=== PATIENT | female | born 1990 | race Caucasian/White ===

== ENCOUNTER 2016-10-30 13:36 | Emergency (ER) | payer MEDICAID, OTHER ==
[~2016-10-30] VITALS: Ht 160 cm; Wt 70.0 kg
[2016-10-30 13:44] VITALS: Ht 160 cm; Wt 70.0 kg
[2016-10-30 14:52] LABS: ADD SCAN DIFF NO
[2016-10-30 15:10] LABS: BASOPHIL # 0.1 10^3/ul (0.0-0.1); BASOPHILS % 0.9 % (0.0-2.0); EOSINOPHILS % 0.1 % (0.0-7.0); HEMATOCRIT 41.4 % (37.0-47.0); HEMOGLOBIN 13.9 g/dl (12.0-16.0); LYMPHOCYTES % 25.1 % (15.0-51.0); MEAN CORPUSCULAR HEMOGLOBIN 29.5 pg (29.0-33.0); MEAN CORPUSCULAR HGB CONC 33.6 g/dl (32.0-37.0); MEAN CORPUSCULAR VOLUME 87.9 fl (82.0-101.0); MEAN PLATELET VOLUME 10.4 fl (7.4-10.4); MONOCYTE # 0.5 10^3/ul (0.3-0.9); MONOCYTES % 5.9 % (0.0-11.0); NEUTROPHIL # 5.5 10^3/ul (1.6-7.5); NEUTROPHILS % 67.6 % (39.0-77.0); PLATELET COUNT 331 10^3/UL (140-415); RED BLOOD COUNT 4.71 10^6/ul (4.20-5.40); RED CELL DISTRIBUTION WIDTH 13.1 % (11.5-14.5); WHITE BLOOD COUNT 8.1 10^3/ul (4.8-10.8)
[2016-10-30 15:16] LABS: ADD UMIC YES; UR ASCORBIC ACID NEGATIVE (NEGATIVE); UR BILIRUBIN (Dip) NEGATIVE (NEGATIVE); UR BLOOD (Dip) 2+ mg/dL (NEGATIVE); UR CLARITY CLOUDY (CLEAR); UR COLOR RED (YELLOW); UR GLUCOSE (Dip) NEGATIVE (NEGATIVE); UR KETONES (Dip) TRACE mg/dL (NEGATIVE); UR LEUKOCYTE ESTERASE (Dip) TRACE Leu/ul (NEGATIVE); UR NITRITE (Dip) NEGATIVE (NEGATIVE); UR RBC > 182 /HPF (0-5); UR SPECIFIC GRAVITY (Dip) 1.013 (1.003-1.030); UR SQUAMOUS EPITHELIAL CELL FEW /HPF (FEW); UR TOTAL PROTEIN (Dip) 2+ mg/dl (NEGATIVE); UR UROBILINOGEN (Dip) NEGATIVE (NEGATIVE)
--- NOTE | 2016-10-30 15:35 | RADRPT ---
PROCEDURE: OBSTETRICAL ULTRASOUND WITH ENDOVAGINAL IMAGES CLINICAL INDICATION: Vaginal Bleed () TECHNIQUE: Multiple sonographic images of the pelvis were obtained utilizing a transabdominal and endovaginal technique. The images were reviewed on a PACS workstation. COMPARISON: None. LMP: 10/06/2016 FINDINGS: The uterus measures 7.3 x 3.2 x 4.3 cm. The endometrium measures 3 mm in thickness. There is no ev idence of an intrauterine . The right ovary measures 1.9 x 1.7 x 1.8 cm. The left ovary measures 2.8 x 1.7 x 2.1 cm. There is no rmal vascular flow in both ovaries. No significant ovarian lesions are seen. No significant pelvic free fluid is identified. IMPRESSION: No evidence of an intrauterine or significant endometrial thickening. Findings may be d ue to an early intrauterine although an ectopic cannot be entirely excluded. Sh ort-term follow-up ultrasound and serial Beta HCG measurements are recommended for further evaluatio n. Bilateral ovaries and adnexa are unremarkable. RPTAT: EE Physician Onofre Date Time Electronically viewed and signed by Physician Onofre on 10/30/2016 15:34 /
[2016-10-30] MEDS ORDERED: ACET500C5 PO (15:57)
--- NOTE | 2016-10-30 16:01 | ERD ---
ER Documentation Chief Complaint Date/Time DATE: 10/30/16 TIME: 15:58 Chief Complaint sent by pmd for vag bleed + preg test lmp 10/06/16 HPI This 26-year-old female presents for evaluation from primary doctor. She has had some vaginal bleeding over the last day with some lower abdominal cramping. She has incidental positive test at the clinic was referred for further evaluation. Patient's last menstrual period was approximately 1 month ago but it was short and less than her normal menstrual period. Patient is a G1 para 0. ROS All systems reviewed and are negative except as per history of present illness. Medications Home Meds Active Scripts Acetaminophen* (Tylophen*) 500 Mg Capsule, 1 CAP PO Q6H Y for PAIN AND OR ELEVATED TEMP, #15 CAP Prov:STACEY SALVADOR MD 10/30/16 Allergies Allergies: Coded Allergies: No Known Allergy (Unverified , 10/30/16) PMhx/Soc Hx Alcohol Use: No Hx Substance Use: No Hx Tobacco Use: No Physical Exam Vitals Vital Signs Date Time Temp Pulse Resp B/P Pulse Ox O2 Delivery O2 Flow Rate FiO2 10/30/16 13:44 98.7 76 18 113/70 100 Physical Exam Const: [] Alert, [id number] Head: Atraumatic Eyes: Normal Conjunctiva ENT: Normal External Ears, Nose and Mouth. Neck: Full range of motion..~ No meningismus. Resp: Clear to auscultation bilaterally Cardio: Regular rate and rhythm, no murmurs Abd: Soft, non tender, non distended. Normal bowel sounds Skin: No petechiae or rashes Back: No midline or flank tenderness Ext: No cyanosis, or edema Neur: Awake and alert Psych: Normal Mood and Affect Result Diagram: 10/30/16 1440 Results 24 hrs Laboratory Tests Test 10/30/16 14:40 White Blood Count 8.110^3/ul Red Blood Count 4.7110^6/ul Hemoglobin 13.9g/dl Hematocrit 41.4% Mean Corpuscular Volume 87.9fl Mean Corpuscular Hemoglobin 29.5pg Mean Corpuscular Hemoglobin Concent 33.6g/dl Red Cell Distribution Width 13.1% Platelet Count 96998^3/UL Mean Platelet Volume 10.4fl Neutrophils % 67.6% Lymphocytes % 25.1% Monocytes % 5.9% Eosinophils % 0.1% Basophils % 0.9% Nucleated Red Blood Cells % 0.0/100WBC Neutrophils # 5.510^3/ul Lymphocytes # 2.010^3/ul Monocytes # 0.510^3/ul Eosinophils # 0.010^3/ul Basophils # 0.110^3/ul Nucleated Red Blood Cells # 0.010^3/ul Urine Color RED Urine Clarity CLOUDY Urine pH 6.0 Urine Specific [place] 1.013 Urine Ketones TRACEmg/dL Urine Nitrite NEGATIVEmg/dL Urine Bilirubin NEGATIVEmg/dL Urine Urobilinogen NEGATIVEmg/dL Urine Leukocyte Esterase TRACELeu/ul Urine Microscopic RBC > 182/HPF Urine Microscopic WBC 165/HPF Urine Squamous Epithelial Cells FEW/HPF Urine Hemoglobin 2+mg/dL Urine Glucose NEGATIVEmg/dL Urine Total Protein 2+mg/dl Beta HCG, Quantitative 950.8mIU/ml Procedures/MDM Pelvic ultrasound shows no evidence of intrauterine . There is no evidence of ectopic masses or adnexal masses or acute abnormalities. Quantitative hCG is 950. Patient is Rh+. Patient was stable amatory throughout the ED course. Patient presents with vaginal bleeding of early without visible on ultrasound. Patient shows no signs or symptoms of acute abdomen, or hemorrhaging. Differential includes early normal , ectopic and incomplete . Patient will be discharged with Tylenol for pain and 2 day recheck to evaluate for increasing or decreasing hCGs. Patient shows return for fevers, worsening bleeding, pain, new worsening symptoms. The patient was stable with no new complaints during the ER course. Clinically, there is no current evidence to suggest meningitis, sepsis, acute abdomen, pneumonia, acute coronary syndrome, pulmonary embolism, or any other emergent condition appearing to require further evaluation or hospitalization. The patient should certainly return for any new or worsening symptoms per the aftercare instructions. They should otherwise follow-up with her primary care doctor for reevaluation this week. Departure Diagnosis: Primary Impression: Vaginal bleeding in patient at less than 20 weeks ges... Condition: Stable Patient Instructions: Bleeding During Early Additional Instructions: no puede julia un emarazo horita. es posiblemente aborto , emabrazo temprano, ectopico . cheque estudios otor vez en 2 galvez. o mas pronto para nueva symptomas. STACEY SALVADOR MD Oct 30, 2016 16:01
== END 2016-10-30 16:15 | disposition home or self-care (01) ==
LOC: FTE 13:36
DX: O20.9 Hemorrhage in early pregnancy, unspecified (principal); Z3A.00 Weeks of gestation of pregnancy not specified
CPT/HCPCS: 36415; 76801; 76817; 81001; 84702; 85025; 86900; 86901

== ENCOUNTER 2016-11-06 11:11 | Emergency (ER) | payer MEDICAID ==
[~2016-11-06] VITALS: Ht 160 cm; Wt 69.0 kg
[~2016-11-06 11:11] MED LIST: ACET500C5 PO
[2016-11-06 11:13] VITALS: Ht 160 cm; Wt 69.0 kg
--- NOTE | 2016-11-06 11:40 | ERD ---
ER Documentation Chief Complaint Date/Time DATE: 11/06/16 TIME: 11:36 Chief Complaint sent by pmd , vag bleed x 2 weeks HPI She is a 26-year-old female, , who presents to the emergency department for concerns of vaginal bleeding x 2 weeks. Patient was referred to the ED by a Mati Mascorro for concerns of incomplete versus ectopic . Patient states that her beta hCG is noted to be down trending. Of note patient was seen here on 10/30/16 and at that time her beta hCG was noted to be 950. Patient was Rh+. Patient states she has been using 2 pads per day. Patient reports bright red blood. Patient denies any pain. Patient denies any fevers or chills. Patient states her last menstrual period was on 10-06-16, however it was noted to be an irregular period. ROS All systems reviewed and are negative except as per history of present illness. Medications Home Meds Active Scripts Acetaminophen* (Tylophen*) 500 Mg Capsule, 1 CAP PO Q6H Y for PAIN AND OR ELEVATED TEMP, #15 CAP Prov:STACEY SALVADOR MD 10/30/16 Allergies Allergies: Coded Allergies: No Known Allergy (Unverified , 10/30/16) PMhx/Soc Hx Alcohol Use: No Hx Substance Use: No Hx Tobacco Use: No FmHx Family History: No diabetes Physical Exam Vitals Vital Signs Date Time Temp Pulse Resp B/P Pulse Ox O2 Delivery O2 Flow Rate FiO2 11/06/16 11:13 97.8 75 16 118/56 98 Physical Exam GENERAL: Well-developed, well-nourished female. Appears in no acute distress. HEAD: Normocephalic, atraumatic. EYES: Pupils are equally reactive bilaterally. EOMs grossly intact. No conjunctival erythema. ENT: Moist mucous membranes. No uvula deviation. No kissing tonsils. NECK: Supple. No meningismus. Normal range of motion of the neck. LUNG: Clear to auscultation bilaterally. No rhonchi, wheezing, rales or coarse breath sounds. HEART: Regular rate and rhythm. No murmurs, rubs or gallops. ABDOMEN: No scars, ecchymosis or rashes noted. Soft, nontender, and nondistended. Positive bowel sounds in all four quadrants. No rebound tenderness , no guarding. (-) McBurney's point tenderness. No CVA tenderness. BACK: No midline tenderness. EXTREMITIES: Equal pulses bilaterally. No peripheral clubbing, cyanosis or edema. No unilateral leg swelling. NEUROLOGIC: Alert and oriented. Moving all four extremities without any difficulty. Normal speech. Steady gait. SKIN: Normal color. Warm and dry. No rashes or lesions. Result Diagram: 11/06/16 1140 Results 24 hrs Laboratory Tests Test 11/06/16 11:40 11/06/16 11:45 White Blood Count 6.110^3/ul Red Blood Count 4.4910^6/ul Hemoglobin 13.6g/dl Hematocrit 40.2% Mean Corpuscular Volume 89.5fl Mean Corpuscular Hemoglobin 30.3pg Mean Corpuscular Hemoglobin Concent 33.8g/dl Red Cell Distribution Width 13.1% Platelet Count 31352^3/UL Mean Platelet Volume 10.6fl Neutrophils % 57.1% Lymphocytes % 31.8% Monocytes % 9.0% Eosinophils % 0.7% Basophils % 1.1% Nucleated Red Blood Cells % 0.0/100WBC Neutrophils # 3.510^3/ul Lymphocytes # 1.910^3/ul Monocytes # 0.610^3/ul Eosinophils # 0.010^3/ul Basophils # 0.110^3/ul Nucleated Red Blood Cells # 0.010^3/ul Beta HCG, Quantitative 746.0mIU/ml Urine Color YELLOW Urine Clarity CLEAR Urine pH 6.0 Urine Specific [place] 1.024 Urine Ketones NEGATIVEmg/dL Urine Nitrite NEGATIVEmg/dL Urine Bilirubin NEGATIVEmg/dL Urine Urobilinogen NEGATIVEmg/dL Urine Leukocyte Esterase NEGATIVELeu/ul Urine Microscopic RBC 3/HPF Urine Microscopic WBC 2/HPF Urine Bacteria FEW/HPF Urine Hemoglobin 2+mg/dL Urine Glucose NEGATIVEmg/dL Urine Total Protein NEGATIVEmg/dl Procedures/MDM ED COURSE: The patient was stable throughout ED course. I kept the patient and/or family informed of laboratory and diagnostic imaging results throughout the ED course. DIAGNOSTIC IMAGING: Read by radiologist. DIAGNOSTIC IMAGING REPORT Patient: YOKASTA TIMMONS : 1990 Age: 26 Sex: F MR #: [id number] DOS: 11/06/16 1134 Ordering MD: LESLEY CUADRA PA-C Location: [facility] Room/Bed: PROCEDURE: OBSTETRICAL ULTRASOUND WITH ENDOVAGINAL IMAGES CLINICAL INDICATION: Vaginal Bleed () TECHNIQUE: Multiple sonographic images of the pelvis were obtained utilizing a transabdominal and endovaginal technique. The images were reviewed on a PACS workstation. COMPARISON: Obstetrical ultrasound from 10/30/2016 LMP: 10/06/2016 Gestational age by LMP: 4 weeks, 3 days FINDINGS: The uterus measures 6.5 x 3.2 x 4.6 cm. The endometrial echo complex measures 4 mm in thickness which is not significantly changed. There is no evidence of an intrauterine . The right ovary measures 3.0 x 1.9 x 2.3 cm. The left ovary measures 3.3 x 1.4 x 2.5 cm. There is normal vascular flow in both ovaries. No significant ovarian lesions are seen. No significant pelvic free fluid is identified. IMPRESSION: No evidence of intrauterine or significant endometrial thickening. There is no evidence of increased thickening of the endometrium since the prior ultrasound from 10/30/2016. Findings may be due to an early intrauterine although an ectopic cannot be entirely excluded. Short-term follow-up ultrasound and serial Beta HCG measurements are recommended for further evaluation. Bilateral ovaries and adnexa are unremarkable. RPTAT: EE Physician Onofre Date Time Electronically viewed and signed by Physician Onofre on 11/06/2016 12:58 RA/ CC: LESLEY CUADRA PA-C PROCEDURES: None. MEDICATIONS GIVEN: [None.] Patient tolerated medication well with no adverse reactions. Patient reported improvement in pain. MEDICAL DECISION MAKING: This is a 26-year-old female , who presents to the ED for vaginal bleeding 2 weeks. Patient was referred to the ED by her clinic for concerns of incomplete spontaneous versus ectopic . Patient does have a downtrending beta-hCG.. Vital signs were reviewed. Patient was afebrile. Patient was hemodynamically stable. Urine test was positive. Quantitative b-HCG today was 746. She was seen here on 10/30/16 at that time her beta-hCG was noted to be 950. At this time it does appear that beta-hCG is down trending. Patient was O+. RhoGam was not given. CBC showed no evidence of systemic infection or severe anemia. Pelvic US showed No evidence of intrauterine or significant endometrial thickening. There is no evidence of increased thickening of the endometrium since the prior ultrasound from 10/30/2016. Findings may be due to an early intrauterine although an ectopic cannot be entirely excluded. Short-term follow- up ultrasound and serial Beta HCG measurements are recommended for further evaluation. Bilateral ovaries and adnexa are unremarkable. Given these findings, the patient's presentation is most consistent with spontaneous . Unable to rule out incomplete . I have a much lower clinical concern for ectopic , ruptured ectopic , molar , subchorionic hematoma, complete , missed , placental abruption, placental previa, vasa previa, uterine rupture, anembyronic . Patient will need to continue to monitor symptoms over the course of the next 1-2 weeks. If bleeding persists, patient may need to have a D&C on an outpatient basis. Patient given referral information for [facility] and [facility]. DISCHARGE: At this time, patient is stable for discharge and outpatient management. I had a conversation at length with the patient about the concerns of vaginal bleeding during the 1st trimester of . Patient and/or family understands that her vaginal bleeding can be a normal finding or a sign of miscarriage. I have instructed the patient to follow-up with her OBGYN in 1-2 days for further monitoring. I have instructed the patient to promptly return to the ER at any time for any new or worsening symptoms including increased pain , nausea, vomiting, continued bleeding, weakness, syncope or fever. The patient and/or family expressed understanding of and agreement with this plan. All questions were answered. Home care instructions were provided. Departure Diagnosis: Primary Impression: Vaginal bleeding in patient at less than 20 weeks ges... Condition: Stable Patient Instructions: Bleeding During Early Referrals: COMMUNITY CLINICS YOU HAVE RECEIVED A MEDICAL SCREENING EXAM AND THE RESULTS INDICATE THAT YOU DO NOT HAVE A CONDITION THAT REQUIRES URGENT TREATMENT IN THE EMERGENCY DEPARTMENT. FURTHER EVALUATION AND TREATMENT OF YOUR CONDITION CAN WAIT UNTIL YOU ARE SEEN IN YOUR DOCTORS OFFICE WITHIN THE NEXT 1-2 DAYS. IT IS YOUR RESPONSIBILITY TO MAKE AN APPOINTMENT FOR FOLOW-UP CARE. IF YOU HAVE A PRIMARY DOCTOR --you should call your primary doctor and schedule an appointment IF YOU DO NOT HAVE A PRIMARY DOCTOR YOU CAN CALL OUR PHYSICIAN REFERRAL HOTLINE AT IF YOU CAN NOT AFFORD TO SEE A PHYSICIAN YOU CAN CHOSE FROM THE FOLLOWING [facility] [address] [facility] [address] [facility] [address] [facility] [address] [facility] [address] [facility]. [facility] [address] [facility]. [facility] YOU HAVE RECEIVED A MEDICAL SCREENING EXAM AND THE RESULTS INDICATE THAT YOU DO NOT HAVE A CONDITION THAT REQUIRES URGENT TREATMENT IN THE EMERGENCY DEPARTMENT. FURTHER EVALUATION AND TREATMENT OF YOUR CONDITION CAN WAIT UNTIL YOU ARE SEEN IN YOUR DOCTORS OFFICE WITHIN THE NEXT 1-2 DAYS. IT IS YOUR RESPONSIBILITY TO MAKE AN APPOINTMENT FOR FOLOW-UP CARE. IF YOU HAVE A PRIMARY DOCTOR --you should call your primary doctor and schedule and appointment IF YOU DO NOT HAVE A PRIMARY DOCTOR YOU CAN CALL OUR PHYSICIAN REFERRAL HOTLINE AT . IF YOU CAN NOT AFFORD TO SEE A PHYSICIAN YOU CAN CHOSE FROM THE FOLLOWING [facility] INSTITUTIONS: [facility] [address] [place] [address] [facility] [address] [place] [address] [facility] [address] [place] [address] [facility] [place] [address] [facility] [address] [place] [address] OFFICE FAX [facility] [address] [place] [address] [address] [facility] [address] [place] [address] [address] CABRAL, [facility] [address] [facility], [address], [facility] [address] [address] PANDA, [place] [address] [facility], [place] [address] [facility] [address] [place] [address] [address] [facility] [address] [address] HORAN, S[place] [address] [facility] [address] [address]RIEN, [place] [address] [facility]. [address], [facility] [address] [address] CORNEJO, [facility] [address] [place], [place] [id number] [facility] Hours: 8:00 am - 5:00 pm Additional Instructions: Call your primary care doctor TOMORROW for an appointment during the next 1-2 days.See the doctor sooner or return here if your condition worsens before your appointment time. LESLEY CUADRA PA-C Nov 06, 2016 11:40
[2016-11-06 11:49] LABS: ADD SCAN DIFF NO
[2016-11-06 12:15] LABS: ADD UMIC YES; UR ASCORBIC ACID NEGATIVE (NEGATIVE); UR BACTERIA FEW /HPF (NONE SEEN); UR BILIRUBIN (Dip) NEGATIVE (NEGATIVE); UR BLOOD (Dip) 2+ mg/dL (NEGATIVE); UR CLARITY CLEAR (CLEAR); UR COLOR YELLOW (YELLOW); UR GLUCOSE (Dip) NEGATIVE (NEGATIVE); UR KETONES (Dip) NEGATIVE (NEGATIVE); UR LEUKOCYTE ESTERASE (Dip) NEGATIVE Leu/ul (NEGATIVE); UR NITRITE (Dip) NEGATIVE (NEGATIVE); UR RBC 3 /HPF (0-5); UR SPECIFIC GRAVITY (Dip) 1.024 (1.003-1.030); UR TOTAL PROTEIN (Dip) NEGATIVE (NEGATIVE); UR UROBILINOGEN (Dip) NEGATIVE (NEGATIVE)
[2016-11-06 12:18] LABS: BASOPHIL # 0.1 10^3/ul (0.0-0.1); BASOPHILS % 1.1 % (0.0-2.0); EOSINOPHILS % 0.7 % (0.0-7.0); HEMATOCRIT 40.2 % (37.0-47.0); HEMOGLOBIN 13.6 g/dl (12.0-16.0); LYMPHOCYTES # 1.9 10^3/ul (0.8-2.9); LYMPHOCYTES % 31.8 % (15.0-51.0); MEAN CORPUSCULAR HEMOGLOBIN 30.3 pg (29.0-33.0); MEAN CORPUSCULAR HGB CONC 33.8 g/dl (32.0-37.0); MEAN CORPUSCULAR VOLUME 89.5 fl (82.0-101.0); MEAN PLATELET VOLUME 10.6 fl (7.4-10.4); MONOCYTE # 0.6 10^3/ul (0.3-0.9); NEUTROPHIL # 3.5 10^3/ul (1.6-7.5); NEUTROPHILS % 57.1 % (39.0-77.0); PLATELET COUNT 282 10^3/UL (140-415); RED BLOOD COUNT 4.49 10^6/ul (4.20-5.40); RED CELL DISTRIBUTION WIDTH 13.1 % (11.5-14.5); WHITE BLOOD COUNT 6.1 10^3/ul (4.8-10.8)
--- NOTE | 2016-11-06 12:58 | RADRPT ---
PROCEDURE: OBSTETRICAL ULTRASOUND WITH ENDOVAGINAL IMAGES CLINICAL INDICATION: Vaginal Bleed () TECHNIQUE: Multiple sonographic images of the pelvis were obtained utilizing a transabdominal and endovaginal technique. The images were reviewed on a PACS workstation. COMPARISON: Obstetrical ultrasound from 10/30/2016 LMP: 10/06/2016 Gestational age by LMP: 4 weeks, 3 days FINDINGS: The uterus measures 6.5 x 3.2 x 4.6 cm. The endometrial echo complex measures 4 mm in thickness whi ch is not significantly changed. There is no evidence of an intrauterine . The right ovary measures 3.0 x 1.9 x 2.3 cm. The left ovary measures 3.3 x 1.4 x 2.5 cm. There is no rmal vascular flow in both ovaries. No significant ovarian lesions are seen. No significant pelvic free fluid is identified. IMPRESSION: No evidence of 10 intrauterine or significant endometrial thickening. There is no evidenc e of increased thickening of the endometrium since the prior ultrasound from 10/30/2016. Finding s may be due to an early intrauterine although an ectopic cannot be entirely exc luded. Short-term follow-up ultrasound and serial Beta HCG measurements are recommended for further evaluation. Bilateral ovaries and adnexa are unremarkable. RPTAT: EE Physician Onofre Date Time Electronically viewed and signed by Physician Onofre on 11/06/2016 12:58 /
== END 2016-11-06 16:20 | disposition home or self-care (01) ==
LOC: FTE 11:11
DX: N93.9 Abnormal uterine and vaginal bleeding, unspecified (principal); Z33.1 Pregnant state, incidental
CPT/HCPCS: 36415; 76801; 76817; 81001; 84702; 85025; 86900; 86901; Z7502

== ENCOUNTER 2016-11-14 18:00 | Day surgery (SDC) | END 2016-11-15 11:27 | disposition home or self-care (01) | DX: O00.10 Tubal pregnancy without intrauterine pregnancy (principal) | CPT/HCPCS: 36415; 59151; 76801; 76817; 80053; 81001; 83690; 84702; 85025; 85610; 85730; 86850; 86900; 86901; 88305; 96365; J0690; J0696; J1170; J2175; J2405; J2710; J2765; J7999; Z7502; Z7512; Z7610 ==